=== PATIENT | female | born 1965 | race Hispanic/Latino ===

== ENCOUNTER 2018-07-04 19:47 | Emergency (ER) | payer OTHER ==
[2018-07-04] MEDS ORDERED: KETOROLAC TROMETHAMINE 60 MG/2 ML VIAL ONE (20:43)
== END 2018-07-04 20:50 | disposition left against medical advice (07) ==
LOC: EDH 19:47
DX: R20.0 Anesthesia of skin (principal); Z98.890 Other specified postprocedural states
CPT/HCPCS: 96372; 99283; J1885

== ENCOUNTER → 2018-11-16 | Outpatient (CLI) | payer OTHER | END | disposition home or self-care (01) | LOC: RAH 09:53 | PROVIDERS: ATTEND Surgery | DX: K21.9 Gastro-esophageal reflux disease without esophagitis (principal); Z90.49 Acquired absence of other specified parts of digestive tract | CPT/HCPCS: 74240 ==

== ENCOUNTER 2019-04-03 06:25 | Day surgery (SDC) | payer OTHER ==
[~2019-04-03] VITALS: Ht 152.4 cm; Wt 69.9 kg
[~2019-04-03 06:25] MED LIST: ACET-2743 PO; ATOR10 PO; CETI10TA57 PO; LEVO50TA11 PO; ONDA4TAB4 PO; PANT20TA12 PO
[2019-04-03 06:58] VITALS: BP 116/49
[2019-04-03] MEDS ORDERED: SODIUM CHLORIDE 0.9% 1000ML 1,000 ML IV ONE (07:14)
[2019-04-03] MEDS ORDERED: LIDOCAINE HCL-MPF 2% 5ML VIAL ONE (07:50)
[2019-04-03] MEDS ORDERED: PROPOFOL 10 MG/ML 20ML VIAL IV ONE (07:50)
[2019-04-03 08:30] VITALS: BP 116/71
[2019-04-03 08:35] VITALS: BP 95/55
[2019-04-03 08:40] VITALS: BP 104/60
[2019-04-03 08:45] VITALS: BP 109/63
[2019-04-03 08:55] VITALS: BP 106/64
== END 2019-04-03 09:05 | disposition home or self-care (01) ==
LOC: DAH 06:25
PROVIDERS: ATTEND Surgery
DX: K91.89 Other postprocedural complications and disorders of digestive system (principal); R13.10 Dysphagia, unspecified; Z90.3 Acquired absence of stomach [part of]; Z98.0 Intestinal bypass and anastomosis status; R11.2 Nausea with vomiting, unspecified; K31.89 Other diseases of stomach and duodenum; K21.9 Gastro-esophageal reflux disease without esophagitis; Z79.899 Other long term (current) drug therapy; E10.9 Type 1 diabetes mellitus without complications; Z98.84 Bariatric surgery status; Z98.82 Breast implant status; Z98.890 Other specified postprocedural states
CPT/HCPCS: 43245; A4606; C1725; J2704; J3490; J7030; 43249

== ENCOUNTER 2019-05-17 07:14 | Day surgery (SDC) | payer OTHER ==
[~2019-05-17] VITALS: Ht 152.4 cm; Wt 66.2 kg
[~2019-05-17 07:14] MED LIST changes: +SODIUM CHLORIDE 0.9% 1000ML 1,000 ML IV ONE
[2019-05-17 07:59] VITALS: BP 115/94
[2019-05-17] MEDS ORDERED: PROPOFOL 10 MG/ML 20ML VIAL IV ONE ×3 (09:58→10:23)
[2019-05-17] MEDS ORDERED: LIDOCAINE HCL 1% 20 ML VIAL ONE (09:58)
[2019-05-17] MEDS ORDERED: GLYCOPYRROLATE 0.2 MG/ML 5 ML VIAL ONE (10:04)
[2019-05-17 10:40] VITALS: BP 108/62
[2019-05-17 10:45] VITALS: BP 109/71
[2019-05-17 11:00] VITALS: BP 108/66
== END 2019-05-17 11:05 | disposition home or self-care (01) ==
LOC: ENDO 07:14 → DAH 07:14 → ENDO 11:05
PROVIDERS: ATTEND Surgery
DX: K95.89 Other complications of other bariatric procedure (principal); E10.9 Type 1 diabetes mellitus without complications; K21.9 Gastro-esophageal reflux disease without esophagitis; Z79.899 Other long term (current) drug therapy; Z90.3 Acquired absence of stomach [part of]; Z98.890 Other specified postprocedural states; Z82.49 Family history of ischemic heart disease and other diseases of the circulatory system
CPT/HCPCS: 43249; A4606; C1726; J2704 ×3; J3490; J7030

== ENCOUNTER 2024-05-22 06:59 | Day surgery (SDC) | payer OTHER ==
[2024-05-22] VITALS (10 sets, daily range): BP systolic 128–165; BP diastolic 57–79; PULSE 58–77; RESP 15–18; TEMP 97–97.4
[~2024-05-22] VITALS: Ht 167.6 cm; Wt 72.6 kg
[~2024-05-22 06:59] MED LIST changes: -ACET-2743 PO; -ATOR10 PO; -CETI10TA57 PO; -ONDA4TAB4 PO; -PANT20TA12 PO; -SODIUM CHLORIDE 0.9% 1000ML 1,000 ML IV ONE
[2024-05-22] MEDS ORDERED: SODIUM TETRADECYL SULFATE 30 MG/ML 2 ML VIAL IV ONE (07:30)
[2024-05-22] MEDS ORDERED: proPOFol 10 MG/ML 20ML VIAL IV ONE ×2 (07:38)
[2024-05-22] MEDS ORDERED: LIDOCAINE PF 100MG/5ML (2%) SYRINGE 5ML ONE (07:39)
[2024-05-22] MEDS: 0.9%NACL 1000ML 1,000 ML IV ONE (07:49)
== END 2024-05-22 09:40 | disposition home or self-care (01) ==
LOC: DAH 06:59 → ENDO 06:59
PROVIDERS: ATTEND Surgery
DX: K21.9 Gastro-esophageal reflux disease without esophagitis (principal); E78.5 Hyperlipidemia, unspecified; E03.9 Hypothyroidism, unspecified; E11.9 Type 2 diabetes mellitus without complications; Z98.0 Intestinal bypass and anastomosis status; Z98.84 Bariatric surgery status; Z98.82 Breast implant status; Z79.899 Other long term (current) drug therapy
CPT/HCPCS: 43236; J7030 ×2; J2001; J2704; J3490; A4620; A4215 ×2; A4223; A4657 ×2; A4222; A4221; A4663; A4606